=== PATIENT | male | born 1985 | race American Indian/Alaskan Native ===

== ENCOUNTER 2018-06-22 19:44 | Emergency (ER) | payer OTHER ==
[2018-06-22] MEDS ORDERED: ASPIRIN PO ONE (20:24)
--- NOTE | 2018-06-22 20:25 | Emergency Department Report ---
Blank Doc - Documentation Documentation: This is a 36 y.o. male that presents to ER with low back pain, hematuria, and chest pain. Patient reports hematuria x 2 weeks. He came in today for increased dizziness and chest discomfort. He reports chest pain feel like pressure and weight sitting on his chest. Current smoker. Ordered: labs Fast track for further evaluation.
[2018-06-22 20:42] LABS: Hematocrit 40.6 % (35.5-45.6); Hemoglobin 13.8 gm/dl (11.8-15.2); Mean Corpuscular HGB Conc 34 % (32-34); Mean Corpuscular Volume 89 fl (84-94); Platelet Count 188 K/mm3 (140-440); Red Blood Count 4.55 M/mm3 (3.65-5.03); Red Cell Distribution Width 13.3 % (13.2-15.2)
[2018-06-22 20:57] LABS: BUN/Creatinine Ratio 17; Blood Urea Nitrogen 15 mg/dL (9-20); Calcium 8.8 mg/dL (8.4-10.2); Hemolysis Index 12
[2018-06-22 21:28] LABS: Basophils % (Manual) 0 % (0.0-1.8); Total Cells Counted 100
[2018-06-22 21:29] LABS: Anisocytosis 1+; Large Platelets Few; Platelet Estimate Consistent w Auto; Poikilocytosis 1+
--- NOTE | 2018-06-22 21:43 | Emergency Department Report ---
ED General Adult HPI - General Chief complaint: Chest Pain Stated complaint: CHEST PAIN AND BLEEDING Time Seen by Provider: 06/22/18 20:19 Source: patient, RN notes reviewed Mode of arrival: Ambulatory Limitations: No Limitations - History of Present Illness Initial comments: This is a 33-year-old gentleman who is not known to this provider previously. The patient does not have a primary care doctor, does not currently take prescription medications. The patient presents to the emergency room with 3 complaints. Complaint #1 is left-sided chest wall pain, present 1 month, nonexertional, increases with palpation, does not radiate to the back, arms or neck, aching in nature, seems to come on after working out. Positive recent aspirin use, no cocaine use, no DVT or pulmonary embolus risk factors. Complaint #2 was nontraumatic paralumbar back pain, present 1 month, achy in nature, increases with palpation, decreases with rest, does not radiate anywhere, with no associated abdominal pain, bladder or bowel retention or incontinence. This pain has basically resolved at this point in time, and the patient denies recent trauma. Complaint #3 is painless hematuria 2-3 weeks. No dysuria, no testicular pain, no fevers or chills, no hematemesis of bright red blood per rectum, and patient reports not taking any blood thinning medications. -: Gradual, week(s) Location: chest, back Radiation: non-radiation Severity scale (0 -10): 8 Quality: aching Consistency: intermittent Improves with: rest Worsens with: movement Associated Symptoms: denies other symptoms, chest pain - Related Data Allergies Allergy/AdvReac Type Severity Reaction Status Date / Time nut - unspecified Allergy Swelling Verified 06/22/18 19:48 peanut Allergy Swelling Verified 06/22/18 19:48 ED Review of Systems ROS: Stated complaint: CHEST PAIN AND BLEEDING Other details as noted in HPI Constitutional: denies: fever, malaise Eyes: denies: vision change Respiratory: denies: cough, shortness of breath Cardiovascular: chest pain Gastrointestinal: denies: abdominal pain Genitourinary: hematuria. denies: urgency, dysuria, frequency Musculoskeletal: back pain Skin: other (right lower extremity ecchymosis). denies: rash, lesions Neurological: denies: headache, weakness Hematological/Lymphatic: denies: easy bleeding ED Past Medical Hx - Past Medical History Previous Medical History?: No - Surgical History Past Surgical History?: No - Social History Smoking Status: Current Every Day Smoker Substance Use Type: Marijuana ED Physical Exam - General Limitations: No Limitations General appearance: alert, in no apparent distress - Head Head exam: Present: atraumatic, normocephalic - Eye Eye exam: Present: normal appearance, EOMI. Absent: nystagmus - ENT ENT exam: Present: normal exam, normal orophraynx, mucous membranes moist, normal external ear exam - Neck Neck exam: Present: normal inspection, full ROM. Absent: tenderness, meningismus - Respiratory Respiratory exam: Present: normal lung sounds bilaterally, chest wall tende rness. Absent: respiratory distress - Cardiovascular Cardiovascular Exam: Present: regular rate, normal rhythm, normal heart sounds. Absent: bradycardia, tachycardia, irregular rhythm, systolic murmur, diastolic murmur, rubs, gallop - GI/Abdominal GI/Abdominal exam: Present: soft. Absent: distended, tenderness, guarding, rebound, rigid, pulsatile mass - Rectal Rectal exam: Present: deferred - Extremities Exam Extremities exam: Present: normal inspection, full ROM, other (2+ pulses noted in the bilateral upper, lower extremities. Compartments soft. No long bony tenderness. The pelvis is stable.). Absent: pedal edema, joint swelling, calf tenderness - Back Exam Back exam: Present: normal inspection, full ROM, paraspinal tenderness. Absent: tenderness, CVA tenderness (R), vertebral tenderness - Neurological Exam Neurological exam: Present: alert, oriented X3, CN II-XII intact, normal gait, other (Extraocular movements intact. Tongue midline. No facial droop. Facial sensation intact to light touch in the V1, V2, V3 distribution bilaterally. 5 and 5 strength in 4 extremities.. Sensation is intact to light touch in 4 extremities.). Absent: motor sensory deficit - Psychiatric Psychiatric exam: Present: normal affect, normal mood - Skin Skin exam: Present: warm, abrasion, ecchymosis ED Course Vital Signs 06/22/18 06/22/18 20:21 22:36 Temperature 98.6 F 99.0 F Pulse Rate 71 78 Respiratory 16 18 Rate Blood Pressure 136/89 Blood Pressure 157/96 [Left] O2 Sat by Pulse 97 99 Oximetry ED Medical Decision Making - Lab Data Result diagrams: 06/22/18 20:29 06/22/18 20:29 Vital Signs 06/22/18 20:21 Temperature 98.6 F Pulse Rate 71 Respiratory 16 Rate Blood Pressure 136/89 O2 Sat by Pulse 97 Oximetry Lab Results 06/22/18 06/22/18 06/22/18 Range/Units 20:29 20:29 21:44 WBC 5.0 (4.5-11.0) K/mm3 RBC 4.55 (3.65-5.03) M/mm3 Hgb 13.8 (11.8-15.2) gm/dl Hct 40.6 (35.5-45.6) % MCV 89 (84-94) fl MCH 30 (28-32) pg MCHC 34 (32-34) % RDW 13.3 (13.2-15.2) % Plt Count 188 (140-440) K/mm3 Eos % (Auto) Special Crimes Investigator Add Manual Diff Complete Total Counted 100 Seg Neutrophils % Special Crimes Investigator Seg Neuts % (Manual) 31.0 L (40.0-70.0) % Band Neutrophils % 0 % Lymphocytes % (Manual) 46.0 H (13.4-35.0) % Reactive Lymphs % (Man) 0 % Monocytes % (Manual) 6.0 (0.0-7.3) % Eosinophils % (Manual) 17.0 H (0.0-4.3) % Basophils % (Manual) 0 (0.0-1.8) % Metamyelocytes % 0 % Myelocytes % 0 % Promyelocytes % 0 % Blast Cells % 0 % Nucleated RBC % Not Reportable Seg Neutrophils # Man 1.6 L (1.8-7.7) K/mm3 Band Neutrophils # 0.0 K/mm3 Lymphocytes # (Manual) 2.3 (1.2-5.4) K/mm3 Abs React Lymphs (Man) 0.0 K/mm3 Monocytes # (Manual) 0.3 (0.0-0.8) K/mm3 Eosinophils # (Manual) 0.9 H (0.0-0.4) K/mm3 Basophils # (Manual) 0.0 (0.0-0.1) K/mm3 Metamyelocytes # 0.0 K/mm3 Myelocytes # 0.0 K/mm3 Promyelocytes # 0.0 K/mm3 Blast Cells # 0.0 K/mm3 WBC Morphology Not Reportable Hypersegmented Neuts Not Reportable Hyposegmented Neuts Not Reportable Hypogranular Neuts Not Reportable Smudge Cells Not Reportable Toxic Granulation Not Reportable Toxic Vacuolation Not Reportable Dohle Bodies Not Reportable Pelger-Huet Anomaly Not Reportable Giorgi Rods Not Reportable Platelet Estimate Consistent w auto Clumped Platelets Not Reportable Plt Clumps, EDTA Not Reportable Large Platelets Few Giant Platelets Not Reportable Platelet Satelliting Not Reportable Plt Morphology Comment Not Reportable RBC Morphology Not Reportable Dimorphic RBCs Not Reportable Polychromasia Not Reportable Hypochromasia Not Reportable Poikilocytosis 1+ Anisocytosis 1+ Microcytosis Not Reportable Macrocytosis Not Reportable Spherocytes Not Reportable Pappenheimer Bodies Not Reportable Sickle Cells Not Reportable Target Cells Not Reportable Tear Drop Cells Not Reportable Ovalocytes Not Reportable Helmet Cells Not Reportable [place] Bodies Not Reportable [place] Not Reportable [place] Cells Not Reportable Bite Cells Not Reportable Crenated Cell Not Reportable Elliptocytes Not Reportable Acanthocytes (Spur) Not Reportable Rouleaux Not Reportable Hemoglobin C Crystals Not Reportable Schistocytes Not Reportable Malaria parasites Not Reportable Michael Bodies Not Reportable Hem Pathologist Commnt No Sodium 139 (137-145) mmol/L Potassium 4.1 (3.6-5.0) mmol/L Chloride 101.6 (98-107) mmol/L Carbon Dioxide 29 (22-30) mmol/L Anion Gap 13 mmol/L BUN 15 (9-20) mg/dL Creatinine 0.9 (0.8-1.5) mg/dL Estimated GFR > 60 ml/min BUN/Creatinine Ratio 17 % Glucose 87 (75-100) mg/dL Calcium 8.8 (8.4-10.2) mg/dL Total Creatine Kinase 183 H (55-170) units/L Troponin T < 0.010 (0.00-0.029) ng/mL Urine Color (Yellow) Urine Turbidity (Clear) Urine pH (5.0-7.0) Ur Specific [place] (1.003-1.030) Urine Protein (Negative) mg/dL Urine Glucose (UA) (Negative) mg/dL Urine Ketones (Negative) mg/dL Urine Blood (Negative) Urine Nitrite (Negative) Urine Bilirubin (Negative) Urine Urobilinogen (<2.0) mg/dL Ur Leukocyte Esterase (Negative) Urine WBC (Auto) (0.0-6.0) /HPF Urine RBC (Auto) (0.0-6.0) /HPF Urine Mucus /HPF 06/22/18 Range/Units Unknown WBC (4.5-11.0) K/mm3 RBC (3.65-5.03) M/mm3 Hgb (11.8-15.2) gm/dl Hct (35.5-45.6) % MCV (84-94) fl MCH (28-32) pg MCHC (32-34) % RDW (13.2-15.2) % Plt Count (140-440) K/mm3 Eos % (Auto) Add Manual Diff Total Counted Seg Neutrophils % Seg Neuts % (Manual) (40.0-70.0) % Band Neutrophils % % Lymphocytes % (Manual) (13.4-35.0) % Reactive Lymphs % (Man) % Monocytes % (Manual) (0.0-7.3) % Eosinophils % (Manual) (0.0-4.3) % Basophils % (Manual) (0.0-1.8) % Metamyelocytes % % Myelocytes % % Promyelocytes % % Blast Cells % % Nucleated RBC % Seg Neutrophils # Man (1.8-7.7) K/mm3 Band Neutrophils # K/mm3 Lymphocytes # (Manual) (1.2-5.4) K/mm3 Abs React Lymphs (Man) K/mm3 Monocytes # (Manual) (0.0-0.8) K/mm3 Eosinophils # (Manual) (0.0-0.4) K/mm3 Basophils # (Manual) (0.0-0.1) K/mm3 Metamyelocytes # K/mm3 Myelocytes # K/mm3 Promyelocytes # K/mm3 Blast Cells # K/mm3 WBC Morphology Hypersegmented Neuts Hyposegmented Neuts Hypogranular Neuts Smudge Cells Toxic Granulation Toxic Vacuolation Dohle Bodies Pelger-Huet Anomaly Giorgi Rods Platelet Estimate Clumped Platelets Plt Clumps, EDTA Large Platelets Giant Platelets Platelet Satelliting Plt Morphology Comment RBC Morphology Dimorphic RBCs Polychromasia Hypochromasia Poikilocytosis Anisocytosis Microcytosis Macrocytosis Spherocytes Pappenheimer Bodies Sickle Cells Target Cells Tear Drop Cells Ovalocytes Helmet Cells [place] Bodies [place] Cells Bite Cells Crenated Cell Elliptocytes Acanthocytes (Spur) Rouleaux Hemoglobin C Crystals Schistocytes Malaria parasites Michael Bodies Hem Pathologist Commnt Sodium (137-145) mmol/L Potassium (3.6-5.0) mmol/L Chloride (98-107) mmol/L Carbon Dioxide (22-30) mmol/L Anion Gap mmol/L BUN (9-20) mg/dL Creatinine (0.8-1.5) mg/dL Estimated GFR ml/min BUN/Creatinine Ratio % Glucose (75-100) mg/dL Calcium (8.4-10.2) mg/dL Total Creatine Kinase (55-170) units/L Troponin T (0.00-0.029) ng/mL Urine Color Yellow (Yellow) Urine Turbidity Clear (Clear) Urine pH 7.0 (5.0-7.0) Ur Specific [place] 1.028 (1.003-1.030) Urine Protein <15 mg/dl (Negative) mg/dL Urine Glucose (UA) Neg (Negative) mg/dL Urine Ketones Neg (Negative) mg/dL Urine Blood Sm (Negative) Urine Nitrite Neg (Negative) Urine Bilirubin Neg (Negative) Urine Urobilinogen 4.0 (<2.0) mg/dL Ur Leukocyte Esterase Neg (Negative) Urine WBC (Auto) 3.0 (0.0-6.0) /HPF Urine RBC (Auto) 85.0 (0.0-6.0) /HPF Urine Mucus Few /HPF - EKG Data -: EKG Interpreted by Nh EKG shows normal: sinus rhythm, axis, intervals, QRS complexes, ST-T waves - EKG Data When compared to previous EKG there are: previous EKG unavailable 06/22/18 22:10 Sinus, 63 bpm, normal axis, QTC 381 ms, early repolarization, not consistent with ST elevation myocardial infarction. - Medical Decision Making Differential diagnosis, including but not limited to: Mechanical chest wall pain, costochondritis, acute coronary syndrome, mechanical back pain, urinary malignancy Assessment and plan: 33-year-old gentleman with 3 complaints. Complaint #1; chest wall pain, present 1 month, low risk for major adverse cardiac event, low risk by DANIEL score, heart score, Wells criteria, perc negative, seems to come on after working out and during working out. Patient may take supportive medications and follow-up with a primary care doctor for this pain. Does not appear to represent an emergent condition. Troponin negative, EKG unremarkable. Complaint #2: Mechanical back pain; reproducible. Does not radiate anywhere, no pulsatile abdominal mass, no historical or physical exam features to suggest A AA or epidural compression syndrome or epidural abscess. Patient may rest, avoid heavy lifting, and take ibuprofen, alternating with acetaminophen as needed for pain. Complaint #3: Hematuria, without elevated creatinine kinase, muscular compartment soft, urinalysis corroborates this. Advised to follow-up with outpatient urology to exclude cancer, tumor, malignancy. Critical care attestation.: If time is entered above; I have spent that time in minutes in the direct care of this critically ill patient, excluding procedure time. ED Disposition Clinical Impression: Lower back pain, Chest wall pain Hematuria Qualifiers: Hematuria type: unspecified type Qualified Code(s): R31.9 - Hematuria, unspecified Disposition: - TO HOME OR SELFCARE Is pt being admited?: No Does the pt Need Aspirin: No Condition: Good Instructions: Acute Hematuria (ED), Costochondritis (ED) Additional Instructions: Avoid heavy lifting, and avoid strenuous physical activities. Take Tylenol, alternating with Motrin [id number] as needed for pain. Apply ice packs as needed for pain. follow up with the primary care doctor or urology specialist for blood in urine which was demonstrated on laboratory studies today within the next 4-6 weeks. Follow-up with a primary care doctor or connie cleaner for chest wall pain within the next 2 weeks. Not following up as recommended for microscopic blood in the urine may resultant undiagnosed tumor, cancer, malignancy. Please return to the emergency room right away, worsening or different symptoms. Referrals: [facility] [Provider Group] - as needed [facility] [Provider Group] - as needed [facility], [facility]ire[facility] [Provider Group] - as needed
[2018-06-22 21:53] LABS: Bilirubin,Urine NEG (Negative); Blood,Urine SM (Negative); Color,Urine Yellow (Yellow); Mucus,Urine FEW /HPF; Protein,Urine <15 mg/dL mg/dL (Negative)
[2018-06-23 00:11] VITALS: BP 142/88
== END 2018-06-23 00:10 | disposition home or self-care (01) ==
LOC: ED 19:44
DX: M54.5 Low back pain (principal); R07.89 Other chest pain; R31.9 Hematuria, unspecified; F17.200 Nicotine dependence, unspecified, uncomplicated; Z91.010 Allergy to peanuts
CPT/HCPCS: 36415; 80048; 81001; 82550; 84484; 85007; 85025; 93005; 93010; 99284